=== PATIENT | female | born 1980 | race Two or more races ===

== ENCOUNTER 2018-10-12 06:26 | Inpatient (IN) ==
[~2018-10-12 06:26] MED LIST: CEFAZOLIN 3000MG 65 ML IV SCH; CITRIC ACID/SODIUM CITRATE 15 ML UDC PO SCH
[2018-10-12] MEDS ORDERED: OXYTOCIN 30 UNITS/500 ML BAG IV PRN (08:24)
[2018-10-12] MEDS ORDERED: PENICILLIN G POTASSIUM 3 MU in DEXTROSE 5% 100 ML IV PRN (08:24)
[2018-10-12] MEDS ORDERED: PENICILLIN G POTASSIUM 6 MU in DEXTROSE 5% 250 ML IV STA (08:24)
[2018-10-12] MEDS ORDERED: LACTATED RINGER'S 1,000 ML IV PRN (08:24)
--- NOTE | 2018-10-12 08:39 | History & Physical Report ---
Date of Service October 12, 2018 Assessment & Plan (1) Elective induction of labor planned: 38 yo at 39.4 wks with GDMA2, on insulin, h/o macrosomia, shoulder dystocia, 3rd degree laceration, GBS+, admitted for IOL VSS Afebrile FHR reassuring FS 125 Plan admit, monitor, US for EFW, see HPI All questions were answered (2) Gestational diabetes mellitus (GDM) affecting , antepartum: (3) History of macrosomia in infant in prior , currently : (4) History of shoulder dystocia in prior , currently : History of Present Illness Chief Complaint: Induction Primary Care Provider: NO PCP Patient is a 38 yo at 39.4 wks who was scheduled for IOL at term for GDMA2, on insulin, h/o macrosomia ( 5300 gr baby) shoulder dystocia, h/o 3rd degree repair She has no complaints No ctxs/ LOF/VB/ Fever/ chills/ SEGURA/ Change in vision/ N&V +FM's Her has been complicated by 1) AMA 2) GDMA2, on insulin, increased doses for poor control 3) h/o macrosomia ( 5300 gr baby) shoulder dystocia, h/o 3rd degree repair 4) GBS+ She had US on 09/30 for EFW: it was 3440 gr, patient thinks baby is much bigger and US is not reliable Desires another US for EFW and does not want to have another shoulder dystocia nor lacerations She has seen MFM for this with recommendations, IOL at 39 wks, Csection if over 4500 gr, increased risk of shoulder dytocia with EFW over 4000 gr. 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
[2018-10-12] MEDS ORDERED: SODIUM CHLORIDE 0.9% 1000ML 1,000 ML IV PRN (08:53)
[2018-10-12] MEDS ORDERED: INSULIN REGULAR 250 UNITS in SODIUM CHLORIDE 0.9% 247.5 ML IV PRN (08:53)
[2018-10-12] MEDS ORDERED: DEXTROSE 50% 50 ML SYRINGE IV PRN (08:53)
[2018-10-12 08:54] LABS: Hematocrit (blood only) 33.9 % (37-47); Hemoglobin 10.9 g/dL (12.0-16.0); Mean Corpuscular Volume 81.9 fL (80-100); Mean Platelet Volume 10.5 fL (7.4-10.4); Platelet Count 157 K/uL (130-400); RDW Coefficient of Variation 14.7 % (11.5-14.5); RDW Standard Deviation 43.5 fL (36.4-46.3); Red Blood Count 4.14 M/uL (4.2-5.4); White Blood Count 8.67 K/uL (4.8-10.8)
[2018-10-12] MEDS ORDERED: PHARMACY GLYCEMIC MGMT CONSULT PRN (08:57)
[2018-10-12] MEDS ORDERED: DEXTROSE 5% 1,000 ML IV SCH (09:00)
[2018-10-12 09:03] LABS: Mean Corpuscular Hgb Conc 32.2 g/dL (32-36)
[2018-10-12 09:14] LABS: Alanine Aminotransferase 19 U/L (12-78); Albumin Level 2.5 gm/dl (3.4-5.0); Aspartate Aminotransferase 20 U/L (15-37); BUN Creatinine Ratio 14.8 (10-20); Blood Urea Nitrogen 11 mg/dl (7-18); Calcium 8.9 mg/dl (8.5-10.1); Carbon Dioxide 20 mmol/L (21-32); Chloride 109 mmol/L (98-107); Est GFR (African American) 115.3; Est GFR (Non-African American) 99.5; Glucose 129 mg/dl (70-99); Potassium 3.9 mmol/L (3.5-5.1); Sodium 139 mmol/L (136-145)
[2018-10-12 09:17] LABS: Albumin Globulin Ratio 0.7 (0.9-2); Alkaline Phosphatase 193 U/L (45-117); Bilirubin,Total 0.2 mg/dl (0.2-1); Globulin 3.7 gm/dl (2.5-4.0); Total Protein 6.2 gm/dl (6.4-8.2)
--- NOTE | 2018-10-12 09:46 | Ultrasound Report ---
ULTRASOUND LIMITED CLINICAL HISTORY: Large for dates. Gestational diabetes. COMPARISON STUDY: No priors. FINDINGS: Real-time, grayscale, and color Doppler sonography of the gravid uterus is performed. There is a sing le live uterine gestation with estimated heart rate of 145 bpm. Presentation is cephalic. The cervix is not well-visualized. The amniotic fluid index measures 12.5 cm. The placenta is normal in appearan ce and located on the right. The head circumference measures 35.52 cm, corresponding to an estimated age of 41 weeks 4 days. Biparietal diameter measures 10.33 cm, which is out of range for dates and greater than 97th percenti le. Abdominal circumference measures 39.60 cm, and is out of range for dates. This is greater than 97th p ercentile. The femoral length measures 8.44 cm in length. This is out of range for dates and greater than 97th p ercentile. Estimated weight is 4944 g +/-742 g. IMPRESSION: 1. There is a single live intrauterine gestation as above. 2. measurements as above. 3. Note that this does not constitute a dedicated anatomic scan. Dictated: 10/12/2018 9:37 AM Transcribed: 10/12/2018 9:46 AM Tabatha [id number] [email or web address] Electronically signed by: Fahad Jenkins M.D. 10/12/2018 9:54 AM
[2018-10-12] MEDS ORDERED: LACTATED RINGER'S 1,000 ML IV SCH ×3 (10:00→15:15)
--- NOTE | 2018-10-12 10:03 | Obstetrical Progress Note ---
Date of Service October 12, 2018 Subjective Patient is back from US Estimated weight is 4944 g +/-742 Discussed above, ACOG and MFM recommendations of Primary Csection if EFW over 4500 gr She was aware of this and planning for Csection. Understands Cection is a major surgery with possible risks and recovery She signed informed consent All questions were answered Surgery at 1 pm per anesthesiology Results & Data Vital Signs (Past 12 Hours) Vital Signs Temp Pulse Resp BP 10/12/18 08:20 37.0 C 20 10/12/18 08:13 78 133/85
[2018-10-12] MEDS ORDERED: MoRPHine SULFATE PF 1 MG/ML 10 ML AMP/VIAL ONE (13:32)
[2018-10-12] MEDS ORDERED: PHENYLEPHRINE HCL 10 MG/ML VIAL ONE (14:15)
[2018-10-12] MEDS ORDERED: ePHEDrine sulfate 50 MG/ML SYR ONE (14:15)
[2018-10-12] MEDS ORDERED: METHYLERGONOVINE MALEATE 0.2 MG/ML AMP ONE (14:16)
[2018-10-12] MEDS ORDERED: OXYTOCIN 10 UNITS/ML VIAL ONE (14:29)
[2018-10-12] MEDS ORDERED: SENNA 8.6 MG TAB PO PRN (15:01)
[2018-10-12] MEDS ORDERED: DiphenhydrAMINE HCL 50 MG/ML VIAL IV PRN ×3 (15:01→15:49)
[2018-10-12] MEDS ORDERED: HYDROCORTISONE ACETATE 25 MG SUPP PR PRN (15:01)
[2018-10-12] MEDS ORDERED: KETOROLAC 30 MG/ML VIAL IV PRN (15:01)
[2018-10-12] MEDS ORDERED: MAGNESIUM HYDROXIDE SUSP 30 ML UDC PO PRN (15:01)
[2018-10-12] MEDS ORDERED: SUPERCREAM 0.870% 15 GM JAR EXT PRN (15:01)
[2018-10-12] MEDS ORDERED: BENZOCAINE 20% AER SPR 82.5 GM CAN EXT PRN (15:01)
[2018-10-12] MEDS ORDERED: DIPHTHERIA/TETANUS/PERTUSSIS 0.5 ML SYR/VIAL IM ONE (15:01)
--- NOTE | 2018-10-12 15:15 | Post Operative Brief Note ---
Immediate Post Op Note v1 Date of Surgery October 12, 2018 Pre & Post Diagnosis Operation Date: 10/12/18 13:00 Pre-Op Diagnosis: "Macrosomia estimated weight 4900grams, maternal gestational diabetes on insulin" Post-Op Diagnosis: "Macrosomia estimated weight 4900grams, maternal gestational diabetes on insulin" Procedure Operation Date: 10/12/18 13:00 <No data on this case meets the specified criteria> Primary low transverse Csection Surgeon Meryl Russell MD [employer] Operator Dr. Engle Estimated Blood Loss 700 Findings Consistent with Post-Op Diagnosis Drains Pineda Catheter Anesthesia Type Spinal Complications none Disposition Accompanied Patient To Recovery: Yes Disposition: L&D Overlapping Procedure I was present for: the critical portions of procedure. (I WAS PRESENT FOR THE ENTIRE CASE)
[2018-10-12 15:19] LABS: Base Excess Cord Venous Blood -5.2 mEq/L (-7.7-1.9); Cord Venous Blood HCO3 22 mmol/L (18.4-26.8); Cord Venous Blood PCO2 47 mmHg (30.4-57.2); Cord Venous Blood PO2 19 mmHg (14.1-43.3); Cord Venous Blood pH 7.28 (7.20-7.44)
[2018-10-12 15:27] LABS: Base Excess Cord Arterial Bld -4.7 mEq/L (-9-1.8); CO2 Cord Arterial Blood 58 mmHg (39.1-73.5); HCO3 Cord Arterial Blood 24 mmol/L (19.7-28.5); pH Cord Arterial Blood 7.23 (7.1-7.38)
[2018-10-12 15:30] LABS: O2 Saturation Cord Venous Bld < 60.0 % (<68)
[2018-10-12 15:31] LABS: PO2 Cord Arterial Blood < 10.0 % (4.1-31.7)
[2018-10-12] MEDS ORDERED: MoRPHine SULFATE 2 MG/ML CARP IV PRN (15:49)
[2018-10-12] MEDS ORDERED: ONDANSETRON INJ 2 MG/ML 2 ML VIAL IV PRN (15:49)
[2018-10-12] MEDS ORDERED: NALOXONE HCL 0.08 MG in SYRINGE 1.8 ML IV PRN (15:49)
[2018-10-12] MEDS ORDERED: MEPERIDINE HCL 25 MG/ML CARP IV PRN (15:49)
[2018-10-12] MEDS ORDERED: MoRPHine SULFATE PF 1 MG/ML 10 ML AMP/VIAL INT SPINAL ONE (15:49)
[2018-10-12] MEDS ORDERED: ePHEDrine sulfate 50 MG/ML AMP IV PRN (15:49)
[2018-10-12] MEDS ORDERED: HYDROmorphone INJ 0.5 MG/0.5 ML SYR IV PRN (15:49)
[2018-10-12] MEDS ORDERED: PROMETHAZINE HCL 25 MG in SODIUM CHLORIDE 0.9% 50 ML IV PRN (15:49)
[2018-10-12] MEDS ORDERED: LACTATED RINGER'S 500 ML IV PRN (15:49)
[2018-10-12] MEDS ORDERED: NALBUPHINE HCL INJ 10 MG/ML AMP IV PRN (15:49)
[2018-10-12] MEDS ORDERED: NALOXONE HCL 0.4 MG/1 ML VIAL/CARP IV PRN (15:49)
[2018-10-12] MEDS ORDERED: NALOXONE HCL 1 MG in SODIUM CHLORIDE 0.9% 1000ML 1,000 ML IV PRN (15:49)
[2018-10-12] MEDS ORDERED: OXYTOCIN 10 UNITS/ML VIAL IM ONE (15:54)
[2018-10-12] MEDS ORDERED: NO NARCOTICS OR SEDATIVES SCH (16:00)
[2018-10-12] MEDS ORDERED: SODIUM CHLORIDE 0.9% 1000ML 1,000 ML IV SCH (16:00)
--- NOTE | 2018-10-12 16:24 | Anesthesiology Progress Note ---
Date of Service October 12, 2018 Anesthesia Post Procedure Vital Signs Vital Signs: Temp Pulse Resp BP Pulse Ox 10/12/18 16:20 61 100 10/12/18 16:16 64 128/79 10/12/18 16:15 69 100 10/12/18 16:10 62 100 10/12/18 16:06 63 132/67 10/12/18 16:05 66 100 10/12/18 16:00 65 100 10/12/18 15:56 67 138/62 10/12/18 15:55 68 98 10/12/18 15:53 74 88 L 10/12/18 15:50 69 98 10/12/18 15:46 64 136/87 10/12/18 15:45 68 99 10/12/18 15:40 70 98 10/12/18 15:36 77 18 130/80 10/12/18 15:35 76 98 10/12/18 15:31 70 124/77 10/12/18 15:30 75 98 10/12/18 15:26 20 10/12/18 15:25 68 98 10/12/18 15:20 75 97 10/12/18 15:16 74 18 141/61 H 10/12/18 15:15 74 96 10/12/18 15:10 73 99 10/12/18 15:06 66 20 137/74 10/12/18 15:05 67 98 10/12/18 15:00 66 97 10/12/18 14:56 36.3 C L 61 20 129/71 10/12/18 14:55 60 98 10/12/18 10:33 74 137/85 10/12/18 10:21 36.9 C 20 10/12/18 08:20 37.0 C 20 10/12/18 08:13 78 133/85 Transfer of Care Handoff Completed per policy Notes Mental Status: alert / awake / arousable and participated in evaluation Nausea / Vomiting: adequately controlled Pain: adequately controlled Airway Patency, RR, SpO2: stable & adequate BP & HR: stable & adequate Hydration State: stable & adequate Neuraxial Anesthesia: was administered and sensory block is resolving Anesthetic Complications: no major complications apparent
[2018-10-12] MEDS: KETOROLAC 30 MG/ML VIAL IV PRN (16:41)
[2018-10-12] MEDS: SIMETHICONE 80 MG CHEW PO SCH ×2 (17:22→20:01)
--- NOTE | 2018-10-12 17:55 | Obstetrical Progress Note ---
Date of Service October 12, 2018 Subjective Patient is reevaluated No pain Breast feeding her baby VSS Afebrile Bleeding minimal, fundus firm UOP about 100 ml in bag in 3 hours Will continue to monitor closely IVF bolus Results & Data Vital Signs (Past 12 Hours) Vital Signs Temp Pulse Resp BP Pulse Ox 10/12/18 17:50 74 100 10/12/18 17:46 74 129/75 10/12/18 17:45 72 100 10/12/18 17:40 70 95 10/12/18 17:36 69 130/75 10/12/18 17:35 67 100 10/12/18 17:30 68 100 10/12/18 17:26 67 117/80 10/12/18 17:25 66 100 10/12/18 17:20 69 100 10/12/18 17:16 62 113/74 10/12/18 17:15 67 100 10/12/18 17:10 77 100 10/12/18 17:06 67 130/84 10/12/18 17:05 71 100 10/12/18 17:00 62 99 10/12/18 16:56 64 18 129/84 10/12/18 16:55 69 100 10/12/18 16:50 74 96 10/12/18 16:46 73 136/85 10/12/18 16:45 73 100 10/12/18 16:40 70 100 10/12/18 16:36 74 137/84 10/12/18 16:35 71 100 10/12/18 16:30 92 H 98 10/12/18 16:26 60 18 139/83 10/12/18 16:25 59 L 100 10/12/18 16:20 61 100 10/12/18 16:16 64 128/79 10/12/18 16:15 69 100 10/12/18 16:10 62 100 10/12/18 16:06 63 132/67 10/12/18 16:05 66 100 10/12/18 16:00 65 100 10/12/18 15:56 67 18 138/62 10/12/18 15:55 68 98 10/12/18 15:53 74 88 L 10/12/18 15:50 69 98 10/12/18 15:46 64 18 136/87 10/12/18 15:45 68 99 10/12/18 15:40 70 98 06/04/19 15:36 77 18 130/80 10/12/18 15:35 76 98 10/12/18 15:31 70 124/77 10/12/18 15:30 75 98 10/12/18 15:26 20 10/12/18 15:25 68 98 10/12/18 15:20 75 97 10/12/18 15:16 74 18 141/61 H 10/12/18 15:15 74 96 10/12/18 15:10 73 99 10/12/18 15:06 66 20 137/74 10/12/18 15:05 67 98 10/12/18 15:00 66 97 10/12/18 14:56 36.3 C L 61 20 129/71 10/12/18 14:55 60 98 10/12/18 10:33 74 137/85 10/12/18 10:21 36.9 C 20 10/12/18 08:20 37.0 C 20 10/12/18 08:13 78 133/85
[2018-10-12] MEDS: OXYTOCIN 20 UNITS in LACTATED RINGER'S 1,000 ML IV SCH (18:36)
[2018-10-12] MEDS: DOCUSATE SODIUM 100 MG CAP PO SCH (20:01)
[2018-10-12] MEDS ORDERED: LACTATED RINGER'S 1,000 ML IV ONE (22:50)
--- NOTE | 2018-10-12 23:03 | Obstetrical Progress Note ---
Date of Service October 12, 2018 Subjective I was called for low OUP 100 ml in 4 hours Patient is seen and examined She feels well, no complaints, just tired No CP/SOB/ Dizziness/ abd pain VSS Afebrile Abd: soft, NT ND, fundus firm at the U towards her right side,, dressing dry No VB, barnard was check to be on right spot, moved up 1-2 cm Ext NT, trace pretibial edema, SCD's on Plan labs, IVF, Continue to monitor Results & Data Vital Signs (Past 12 Hours) Vital Signs Temp Pulse Pulse Resp BP BP Pulse Ox 10/12/18 22:33 18 97 10/12/18 21:08 16 95 10/12/18 20:15 16 95 10/12/18 19:50 18 97 10/12/18 18:35 36.6 C 76 18 133/90 96 10/12/18 18:15 77 100 10/12/18 18:10 75 100 10/12/18 18:07 73 140/62 10/12/18 18:05 78 100 10/12/18 18:00 74 99 10/12/18 17:56 70 131/82 10/12/18 17:55 72 100 10/12/18 17:50 74 100 10/12/18 17:46 74 129/75 10/12/18 17:45 72 100 10/12/18 17:40 70 95 10/12/18 17:36 69 130/75 10/12/18 17:35 67 100 10/12/18 17:30 68 100 10/12/18 17:26 67 117/80 10/12/18 17:25 66 100 10/12/18 17:20 69 100 10/12/18 17:16 62 113/74 10/12/18 17:15 67 100 10/12/18 17:10 77 100 10/12/18 17:06 67 130/84 10/12/18 17:05 71 100 10/12/18 17:00 62 99 10/12/18 16:56 64 18 129/84 10/12/18 16:55 69 100 10/12/18 16:50 74 96 10/12/18 16:46 73 136/85 10/12/18 16:45 73 100 10/12/18 16:40 70 100 10/12/18 16:36 74 137/84 10/12/18 16:35 71 100 10/12/18 16:30 92 H 98 10/12/18 16:26 60 18 139/83 10/12/18 16:25 59 L 100 10/12/18 16:20 61 100 10/12/18 16:16 64 128/79 10/12/18 16:15 69 100 10/12/18 16:10 62 100 10/12/18 16:06 63 132/67 10/12/18 16:05 66 100 10/12/18 16:00 65 100 10/12/18 15:56 67 18 138/62 10/12/18 15:55 68 98 10/12/18 15:53 74 88 L 10/12/18 15:50 69 98 10/12/18 15:46 64 18 136/87 10/12/18 15:45 68 99 10/12/18 15:40 70 98 10/12/18 15:36 77 18 130/80 10/12/18 15:35 76 98 10/12/18 15:31 70 124/77 10/12/18 15:30 75 98 10/12/18 15:26 20 10/12/18 15:25 68 98 10/12/18 15:20 75 97 10/12/18 15:16 74 18 141/61 H 10/12/18 15:15 74 96 10/12/18 15:10 73 99 10/12/18 15:06 66 20 137/74 10/12/18 15:05 67 98 10/12/18 15:00 66 97 10/12/18 14:56 36.3 C L 61 20 129/71 10/12/18 14:55 60 98 Pulse Ox 10/12/18 22:33 10/12/18 21:08 10/12/18 20:15 10/12/18 19:50 10/12/18 18:35 96 10/12/18 18:15 10/12/18 18:10 10/12/18 18:07 10/12/18 18:05 10/12/18 18:00 10/12/18 17:56 10/12/18 17:55 10/12/18 17:50 10/12/18 17:46 10/12/18 17:45 10/12/18 17:40 10/12/18 17:36 10/12/18 17:35 10/12/18 17:30 10/12/18 17:26 10/12/18 17:25 10/12/18 17:20 10/12/18 17:16 10/12/18 17:15 10/12/18 17:10 10/12/18 17:06 10/12/18 17:05 10/12/18 17:00 10/12/18 16:56 10/12/18 16:55 10/12/18 16:50 10/12/18 16:46 10/12/18 16:45 10/12/18 16:40 10/12/18 16:36 10/12/18 16:35 10/12/18 16:30 10/12/18 16:26 10/12/18 16:25 10/12/18 16:20 10/12/18 16:16 10/12/18 16:15 10/12/18 16:10 10/12/18 16:06 10/12/18 16:05 10/12/18 16:00 10/12/18 15:56 10/12/18 15:55 10/12/18 15:53 10/12/18 15:50 10/12/18 15:46 10/12/18 15:45 10/12/18 15:40 10/12/18 15:36 10/12/18 15:35 10/12/18 15:31 10/12/18 15:30 10/12/18 15:26 10/12/18 15:25 10/12/18 15:20 10/12/18 15:16 10/12/18 15:15 10/12/18 15:10 10/12/18 15:06 10/12/18 15:05 10/12/18 15:00 10/12/18 14:56 10/12/18 14:55
[2018-10-12 23:04] LABS: Basophils # (auto) 0.01 K/uL (0-0.2); Basophils % (auto) 0.1 %; Eosinophils # (auto) 0.02 K/uL (0-0.5); Eosinophils % (auto) 0.2 %; Hematocrit (blood only) 29.5 % (37-47); Hemoglobin 9.5 g/dL (12.0-16.0); Immature Granulocytes # (auto) 0.03 K/uL (0.00-0.02); Immature Granulocytes % (auto) 0.2 %; Lymphocytes # (auto) 1.37 K/uL (1.2-3.4); Lymphocytes % (auto) 11.1 %; Mean Corpuscular Volume 81.9 fL (80-100); Mean Platelet Volume 9.7 fL (7.4-10.4); Monocytes # (auto) 0.38 K/uL (0.11-0.59); Monocytes % (auto) 3.1 %; Neutrophils # (auto) 10.57 K/uL (1.4-6.5); Neutrophils % (auto) 85.3 %; Platelet Count 145 K/uL (130-400); RDW Coefficient of Variation 14.9 % (11.5-14.5); RDW Standard Deviation 44.6 fL (36.4-46.3); White Blood Count 12.38 K/uL (4.8-10.8)
[2018-10-12 23:16] LABS: Mean Corpuscular Hgb Conc 32.2 g/dL (32-36)
[2018-10-12 23:21] LABS: Albumin Level 2.1 gm/dl (3.4-5.0); Creatinine Clr Calc Pharmacy 132.7 ml/min; Est GFR (African American) 127.4; Est GFR (Non-African American) 109.9; Potassium 3.8 mmol/L (3.5-5.1)
[2018-10-12 23:24] LABS: Albumin Globulin Ratio 0.7 (0.9-2); Bilirubin,Total 0.2 mg/dl (0.2-1); Globulin 3.1 gm/dl (2.5-4.0); Total Protein 5.2 gm/dl (6.4-8.2)
--- NOTE | 2018-10-13 02:07 | Operative Report ---
DATE OF OPERATION: 10/12/2018 PREOPERATIVE DIAGNOSIS: The patient is a 38-year-old G4, P2-0-1-2 at 39 weeks and 4 days of gestation with gestational diabetes, on insulin and suspected macrosomia. Per ultrasound estimated weight is 4940 grams. The patient has a history of macrosomia in 2017 with shoulder dystocia and third-degree repair and desires primary . POSTOPERATIVE DIAGNOSIS: The patient is a 38-year-old G4, P2-0-1-2 at 39 weeks and 4 days of gestation with gestational diabetes, on insulin and suspected macrosomia. Per ultrasound estimated weight is 4940 grams. The patient has a history of macrosomia in 2017 with shoulder dystocia and third-degree repair and desires primary , macrosomia and baby weighed 4930 grams. PROCEDURE: Primary low transverse with Pfannenstiel skin incision. SURGEON: Meryl Russell MD ADJUNCT PROFESSOR OF ENGLISH: Brad Engle MD ESTIMATED BLOOD LOSS: 700 mL FLUIDS: 2100 mL of lactated Ringers. DRAINS: Pineda catheter drained 225 mL of clear urine. ANESTHESIA: Spinal, Dr. Osorio. COMPLICATIONS: None. FINDINGS: Baby was a viable male delivered at 1400 hours in cephalic presentation, Apgars were 8/9, weight was 4930 grams. Maternal findings, normal uterus, fallopian tubes and ovaries. DESCRIPTION OF PROCEDURE: The patient was taken to the Operating Room where spinal anesthesia was given without difficulty. She was placed in dorsal supine position with a leftward tilt. She was prepared and draped in usual sterile fashion. A Pfannenstiel skin incision was made and carried through to the underlying layer of fascia with the Bovie. Fascia was incised in the midline and incision was extended laterally with the help of Gabriel scissors. Upper aspect of the fascial incision was then grasped with 2 Travis clamps, elevated, underlying rectus muscles were dissected sharply with Gabriel scissors. Lower aspect of the fascial incision was then grasped with 2 Travis clamps, elevated, underlying rectus muscles were dissected off sharply with Gabriel scissors. The rectus muscles were in the midline and the peritoneum was entered bluntly with the fingers. Peritoneal incision was extended superiorly and inferiorly with good visualization of the bladder and the Dudley abdominal wall retractor was placed and the wall was retracted and the bladder blade was inserted. Vesicouterine peritoneum was identified, grasped with pickups, entered sharply with Metzenbaum scissors and the bladder flap was created digitally and bladder blade was reinserted. The lower uterine segment was incised in transverse fashion, incision was extended laterally with the help of fingers. Membranes were ruptured. Clear fluid was obtained and baby's head was delivered without difficulty. Shoulders were delivered with minimal traction. Mouth and nose were suctioned. Cord was clamped x2 and cut and cord blood was obtained and it was a 3-vessel cord. Placenta was delivered manually as intact and complete. Uterus was exteriorized, cleared off all clots and debris. Uterine massage was done and it was large uterus but firm with minimal bleeding. IV oxytocin infusion was started. The patient was given IM Methergine and intramyometrial oxytocin and then uterine incision was repaired with 0 Vicryl in a running locked fashion and a second imbricating layer was placed with a 0 Vicryl in a running fashion. Excellent hemostasis was achieved. The posterior cul-de-sac was irrigated with warm normal saline and suctioned. The patient was found to have a normal uterus, fallopian tubes and normal pelvic peritoneum. Uterus was returned to the abdomen. The pelvis was irrigated with warm normal saline and suctioned. There was a small oozing on the mid of the incision on the lower side. It was controlled with [id number] stitches x2 with 0 Vicryl. Incision was inspected again to be hemostatic and then bladder flap was reapproximated with 3-0 Vicryl in a running fashion. The parietal peritoneum was then reapproximated with 3-0 Vicryl in a running fashion. Rectus muscles were brought together with the same suture in a running fashion. Rectus muscles and fascia were hemostatic. The rectus fascia was then closed with 0 Vicryl in a running fashion and the subcuticular fat tissue was reapproximated with 3-0 Vicryl in a running fashion and the skin was closed with 4-0 Monocryl in a subcuticular fashion. The patient tolerated the procedure well. Sponge, lap, needle count was correct x3. No complications happened and I was and Dr. Engle was present during whole procedure. She was taken to Labor And Delivery in stable condition. I attest to the content of the Intraoperative Record and any orders documented therein. Any exceptions are noted below. MTDD
[2018-10-13] MEDS: OXYTOCIN 20 UNITS in LACTATED RINGER'S 1,000 ML IV SCH (02:40)
[2018-10-13 05:17] LABS: Appearance Urine Clear (Clear); Bacteria Urine Automated Negative (Negative); Bilirubin Urine Negative (Negative); Blood Urine Negative (Negative); Color Urine Dark Yellow; Glucose Urine UA Negative (Negative); Ketones Urine Negative (Negative); Leukocyte Esterase Urine Trace (Negative); Nitrite Urine Negative (Negative); Protein Urine Negative (Negative); RBC Urine Automated 0-4 /hpf (0-4); Urobilinogen Urine Negative (Negative)
[2018-10-13] MEDS: KETOROLAC 30 MG/ML VIAL IV PRN (05:25)
[2018-10-13 06:53] LABS: Basophils # (auto) 0.01 K/uL (0-0.2); Basophils % (auto) 0.1 %; Eosinophils # (auto) 0.03 K/uL (0-0.5); Eosinophils % (auto) 0.3 %; Hematocrit (blood only) 25.8 % (37-47); Hemoglobin 8.3 g/dL (12.0-16.0); Immature Granulocytes # (auto) 0.02 K/uL (0.00-0.02); Immature Granulocytes % (auto) 0.2 %; Lymphocytes # (auto) 1.06 K/uL (1.2-3.4); Lymphocytes % (auto) 12.2 %; Mean Corpuscular Hgb Conc 32.2 g/dL (32-36); Mean Corpuscular Volume 82.2 fL (80-100); Mean Platelet Volume 9.3 fL (7.4-10.4); Monocytes # (auto) 0.36 K/uL (0.11-0.59); Monocytes % (auto) 4.2 %; Neutrophils # (auto) 7.18 K/uL (1.4-6.5); Platelet Count 131 K/uL (130-400); RDW Standard Deviation 45.1 fL (36.4-46.3); Red Blood Count 3.14 M/uL (4.2-5.4); White Blood Count 8.66 K/uL (4.8-10.8)
[2018-10-13] MEDS: SIMETHICONE 80 MG CHEW PO SCH ×4 (09:19→19:41)
[2018-10-13] MEDS: PRENATAL VITAMIN 1 TAB PO SCH (09:19)
[2018-10-13] MEDS: FERROUS SULFATE 325 MG TAB PO SCH (09:19)
[2018-10-13] MEDS: DOCUSATE SODIUM 100 MG CAP PO SCH ×2 (09:19→19:40)
--- NOTE | 2018-10-13 09:19 | Obstetrical Progress Note ---
Date of Service October 13, 2018 Physical Exam Physical Exam: AFEBRILE abdomen soft and non tender bandage clean and dry bowel sounds are normal no calf tenderness passing flatus Results & Data Vital Signs (Past 12 Hours) Vital Signs Temp Pulse Resp BP Pulse Ox 10/13/18 06:15 16 94 10/13/18 05:00 16 97 10/13/18 04:35 37.0 C 74 16 109/70 96 10/13/18 03:00 16 95 10/13/18 02:08 18 98 10/13/18 01:00 16 97 10/13/18 00:05 16 98 10/12/18 23:30 36.6 C 87 18 128/80 98 10/12/18 22:33 18 97
[2018-10-13] MEDS ORDERED: DC INTRASPINAL MORPHINE SCH (09:49)
[2018-10-13] MEDS ORDERED: ONDANSETRON INJ 2 MG/ML 2 ML VIAL IV PRN (09:49)
[2018-10-13] MEDS ORDERED: PROMETHAZINE HCL 25 MG in SODIUM CHLORIDE 0.9% 50 ML IV PRN (09:49)
[2018-10-13] MEDS ORDERED: MEPERIDINE HCL 50 MG/ML CARP IV PRN (09:49)
[2018-10-13] MEDS: IBUPROFEN 600 MG TAB PO PRN ×2 (09:58→19:41)
[2018-10-13] MEDS: OXYCODONE/ACETAMINOPHEN 5mg/325mg TAB PO PRN ×2 (09:58→19:41)
[2018-10-13] MEDS ORDERED: BISACODYL 5 MG TABEC PO SCH (20:00)
[2018-10-14 06:33] LABS: Hematocrit (blood only) 23.7 % (37-47); Hemoglobin 7.6 g/dL (12.0-16.0)
[2018-10-14] MEDS ORDERED: BISACODYL 10 MG SUPP PR PRN (07:00)
--- NOTE | 2018-10-14 09:09 | Surgery Progress Note ---
Date of Service October 14, 2018 Subjective doing well passing gas tolerating diet OOB ambulating well Physical Exam Constitutional: WD/WN, vitals as above comfortable abdomen soft non- tender incision clean, dry and intact no edema neg Nader's plans for discharge today follow up n 1 week in office Results & Data Vital Signs (Past 12 Hours) Vital Signs Temp Pulse Resp BP Pulse Ox 10/14/18 07:54 37 C 78 18 106/69 96 10/13/18 23:20 36.8 C 85 18 118/76 98 Laboratory Results Laboratory Results - last 48 hr 10/12/18 10/12/18 10/12/18 08:35 08:35 10:13 WBC RBC Hgb Hct MCV MCH MCHC RDW Std Deviation RDW Coeff of Nadiya Plt Count MPV Immature Gran % (Auto) Neut % (Auto) Lymph % (Auto) [place] % (Auto) Eos % (Auto) Baso % (Auto) Immature Gran # (Auto) Neut # (Auto) Lymph # (Auto) [place] # (Auto) Eos # (Auto) Baso # (Auto) Cord ABG pH Cord ABG pCO2 Cord ABG pO2 Cord ABG HCO3 Cord ABG Base Excess Cord ABG O2 Sat Cord VBG pH Cord VBG pCO2 Cord VBG pO2 Cord VBG HCO3 Cord VBG Base Excess Cord VBG O2 Sat Barometric Pressure Blood Gas Comments Sodium 139 Potassium 3.9 Chloride 109 H Carbon Dioxide 20 L Anion Gap 10.0 BUN 11 Creatinine 0.76 Est Cr Clr Drug Dosing Not Reportable Est GFR ( Amer) 115.3 Est GFR (Non-Af Amer) 99.5 BUN/Creatinine Ratio 14.8 Glucose 129 H POC Glucose 71 Calcium 8.9 Total Bilirubin 0.2 AST 20 ALT 19 Alkaline Phosphatase 193 H Total Protein 6.2 L Albumin 2.5 L Globulin 3.7 Albumin/Globulin Ratio 0.7 L Urine Color Urine Appearance Urine pH Ur Specific Purcell Urine Protein Urine Glucose (UA) Urine Ketones Urine Blood Urine Nitrite Urine Bilirubin Urine Urobilinogen Ur Leukocyte Esterase Urine WBC (Auto) Urine RBC (Auto) U Hyaline Cast (Auto) U Epithel Cells (Auto) Urine Bacteria (Auto) Blood Type A Positive Antibody Screen NEGATIVE 10/12/18 10/12/18 10/12/18 11:31 12:29 14:00 WBC RBC Hgb Hct MCV MCH MCHC RDW Std Deviation RDW Coeff of Nadiya Plt Count MPV Immature Gran % (Auto) Neut % (Auto) Lymph % (Auto) [place] % (Auto) Eos % (Auto) Baso % (Auto) Immature Gran # (Auto) Neut # (Auto) Lymph # (Auto) [place] # (Auto) Eos # (Auto) Baso # (Auto) Cord ABG pH 7.23 Cord ABG pCO2 58 Cord ABG pO2 < 10.0 Cord ABG HCO3 24 Cord ABG Base Excess -4.7 Cord ABG O2 Sat < 60.0 Cord VBG pH Cord VBG pCO2 Cord VBG pO2 Cord VBG HCO3 Cord VBG Base Excess Cord VBG O2 Sat Barometric Pressure 732.8 Blood Gas Comments A Sodium Potassium Chloride Carbon Dioxide Anion Gap BUN Creatinine Est Cr Clr Drug Dosing Est GFR ( Amer) Est GFR (Non-Af Amer) BUN/Creatinine Ratio Glucose POC Glucose 62 L* 64 L* Calcium Total Bilirubin AST ALT Alkaline Phosphatase Total Protein Albumin Globulin Albumin/Globulin Ratio Urine Color Urine Appearance Urine pH Ur Specific Purcell Urine Protein Urine Glucose (UA) Urine Ketones Urine Blood Urine Nitrite Urine Bilirubin Urine Urobilinogen Ur Leukocyte Esterase Urine WBC (Auto) Urine RBC (Auto) U Hyaline Cast (Auto) U Epithel Cells (Auto) Urine Bacteria (Auto) Blood Type Antibody Screen 10/12/18 10/12/18 10/12/18 14:00 15:50 22:54 WBC 12.38 H RBC 3.60 L Hgb 9.5 L Hct 29.5 L MCV 81.9 MCH 26.4 MCHC 32.2 RDW Std Deviation 44.6 RDW Coeff of Nadiya 14.9 H Plt Count 145 MPV 9.7 Immature Gran % (Auto) 0.2 Neut % (Auto) 85.3 Lymph % (Auto) 11.1 [place] % (Auto) 3.1 Eos % (Auto) 0.2 Baso % (Auto) 0.1 Immature Gran # (Auto) 0.03 H Neut # (Auto) 10.57 H Lymph # (Auto) 1.37 [place] # (Auto) 0.38 Eos # (Auto) 0.02 Baso # (Auto) 0.01 Cord ABG pH Cord ABG pCO2 Cord ABG pO2 Cord ABG HCO3 Cord ABG Base Excess Cord ABG O2 Sat Cord VBG pH 7.28 Cord VBG pCO2 47 Cord VBG pO2 19 Cord VBG HCO3 22 Cord VBG Base Excess -5.2 Cord VBG O2 Sat < 60.0 Barometric Pressure 732.8 Blood Gas Comments A Sodium Potassium Chloride Carbon Dioxide Anion Gap BUN Creatinine Est Cr Clr Drug Dosing Est GFR ( Amer) Est GFR (Non-Af Amer) BUN/Creatinine Ratio Glucose POC Glucose 84 Calcium Total Bilirubin AST ALT Alkaline Phosphatase Total Protein Albumin Globulin Albumin/Globulin Ratio Urine Color Urine Appearance Urine pH Ur Specific Purcell Urine Protein Urine Glucose (UA) Urine Ketones Urine Blood Urine Nitrite Urine Bilirubin Urine Urobilinogen Ur Leukocyte Esterase Urine WBC (Auto) Urine RBC (Auto) U Hyaline Cast (Auto) U Epithel Cells (Auto) Urine Bacteria (Auto) Blood Type Antibody Screen 10/12/18 10/13/18 10/13/18 22:54 04:40 06:42 WBC 8.66 RBC 3.14 L Hgb 8.3 L Hct 25.8 L MCV 82.2 MCH 26.4 MCHC 32.2 RDW Std Deviation 45.1 RDW Coeff of Nadiya 15.0 H Plt Count 131 MPV 9.3 Immature Gran % (Auto) 0.2 Neut % (Auto) 83.0 Lymph % (Auto) 12.2 [place] % (Auto) 4.2 Eos % (Auto) 0.3 Baso % (Auto) 0.1 Immature Gran # (Auto) 0.02 Neut # (Auto) 7.18 H Lymph # (Auto) 1.06 L [place] # (Auto) 0.36 Eos # (Auto) 0.03 Baso # (Auto) 0.01 Cord ABG pH Cord ABG pCO2 Cord ABG pO2 Cord ABG HCO3 Cord ABG Base Excess Cord ABG O2 Sat Cord VBG pH Cord VBG pCO2 Cord VBG pO2 Cord VBG HCO3 Cord VBG Base Excess Cord VBG O2 Sat Barometric Pressure Blood Gas Comments Sodium 142 Potassium 3.8 Chloride 111 H Carbon Dioxide 23 Anion Gap 8.0 BUN 11 Creatinine 0.70 Est Cr Clr Drug Dosing 132.7 Est GFR ( Amer) 127.4 Est GFR (Non-Af Amer) 109.9 BUN/Creatinine Ratio 15.0 Glucose 60 L POC Glucose Calcium 8.0 L Total Bilirubin 0.2 AST 22 ALT 15 Alkaline Phosphatase 154 H Total Protein 5.2 L Albumin 2.1 L Globulin 3.1 Albumin/Globulin Ratio 0.7 L Urine Color Dark Yellow Urine Appearance Clear Urine pH 5.0 Ur Specific Purcell 1.030 Urine Protein Negative Urine Glucose (UA) Negative Urine Ketones Negative Urine Blood Negative Urine Nitrite Negative Urine Bilirubin Negative Urine Urobilinogen Negative Ur Leukocyte Esterase Trace H Urine WBC (Auto) 10-30 H Urine RBC (Auto) 0-4 U Hyaline Cast (Auto) 1-5 U Epithel Cells (Auto) 10-20 H Urine Bacteria (Auto) Negative Blood Type Antibody Screen 10/14/18 06:06 WBC RBC Hgb 7.6 L Hct 23.7 L MCV MCH MCHC RDW Std Deviation RDW Coeff of Nadiya Plt Count MPV Immature Gran % (Auto) Neut % (Auto) Lymph % (Auto) [place] % (Auto) Eos % (Auto) Baso % (Auto) Immature Gran # (Auto) Neut # (Auto) Lymph # (Auto) [place] # (Auto) Eos # (Auto) Baso # (Auto) Cord ABG pH Cord ABG pCO2 Cord ABG pO2 Cord ABG HCO3 Cord ABG Base Excess Cord ABG O2 Sat Cord VBG pH Cord VBG pCO2 Cord VBG pO2 Cord VBG HCO3 Cord VBG Base Excess Cord VBG O2 Sat Barometric Pressure Blood Gas Comments Sodium Potassium Chloride Carbon Dioxide Anion Gap BUN Creatinine Est Cr Clr Drug Dosing Est GFR ( Amer) Est GFR (Non-Af Amer) BUN/Creatinine Ratio Glucose POC Glucose Calcium Total Bilirubin AST ALT Alkaline Phosphatase Total Protein Albumin Globulin Albumin/Globulin Ratio Urine Color Urine Appearance Urine pH Ur Specific Purcell Urine Protein Urine Glucose (UA) Urine Ketones Urine Blood Urine Nitrite Urine Bilirubin Urine Urobilinogen Ur Leukocyte Esterase Urine WBC (Auto) Urine RBC (Auto) U Hyaline Cast (Auto) U Epithel Cells (Auto) Urine Bacteria (Auto) Blood Type Antibody Screen
[2018-10-14] MEDS: PRENATAL VITAMIN 1 TAB PO SCH (09:15)
[2018-10-14] MEDS: SIMETHICONE 80 MG CHEW PO SCH ×2 (09:15→12:34)
[2018-10-14] MEDS: DOCUSATE SODIUM 100 MG CAP PO SCH (09:15)
[2018-10-14] MEDS: FERROUS SULFATE 325 MG TAB PO SCH (09:15)
[2018-10-14] MEDS: IBUPROFEN 600 MG TAB PO PRN (09:16)
[2018-10-14] MEDS: OXYCODONE/ACETAMINOPHEN 5mg/325mg TAB PO PRN (09:16)
--- NOTE | 2018-10-16 22:11 | Discharge Summary ---
DETAILS OF ADMISSION: The patient is a 38-year-old G4, P2-0-1-2 at 39 weeks and 4 days of gestation, who was admitted for induction of labor for gestational diabetes on insulin with poor control, history of macrosomia, shoulder dystocia, third degree laceration with her last delivery. She has seen MFM for consultation during this . They recommended if the estimated weight is more than 4500 grams as like ACOG recommendations. On the admission, she was suspected to have a macrosomic baby. She had ultrasound for estimated weight which came back as 4900+ grams. Discussed with her about [facility] and ACOG recommendations and the risk of shoulder dystocia, injury to the baby and herself. She decided for a primary . She signed an informed consent. She was taken to the OR. She had primary low transverse and delivered a viable male infant, weight was 4930 grams. Her surgery was uncomplicated. See dictated op note for details. On postop period, patient was doing well. Vital signs stable, afebrile. Her urine output was borderline. Her H and H was stable. She was given IV fluid bolus and her urine output improved. On postop day #1, the patient was doing well. Vital signs stable, afebrile. Physical exam is unremarkable. Abdomen soft, nontender. Incision is clean, dry and intact. On postop day #2, 10/14/2018, the patient was doing well. Vital signs stable, afebrile. H and H was stable. Her incision was clean, dry and intact. Abdomen was soft, nontender. The patient desired to go home on postop day #2. The patient was discharged by Dr. Funez. Discharge instructions were given. Prescriptions were written for pain. She is to be seen in the office for incision check in a week. ALBERTO
== END 2018-10-14 16:35 | disposition home or self-care (01) | DRG 788 ==
LOC: 4S1 07:57 → 4S2 18:35